=== PATIENT | female | born 1980 | race Native Hawaiian/Other Pacific Islander ===

== ENCOUNTER 2025-03-14 09:21 | Emergency (ER) | payer OTHER ==
[~2025-03-14] VITALS: Ht 162.6 cm; Wt 93.2 kg
[~2025-03-14 09:21] MED LIST: CARAFATE1 GM/10 ML PO; CRUTCH1 EACH; NAPROSYN500 MG PO; SPIRONOLACTONE100 MG PO
[2025-03-14] MEDS ORDERED: SODIUM CHLORIDE 0.9% 1,000 ML IV ONE (10:00)
[2025-03-14] MEDS ORDERED: MORPHINE SULFATE 4 MG/ML VIAL IV ONE (10:00)
[2025-03-14 10:28] LABS: BASOPHILS 0.3 % (0.1-1.2); EOSINOPHILS 0.6 % (0.7-5.8); LYMPHOCYTES 12.9 % (19.3-51.7); MCH 30.1 PG (25.6-32.2); MCHC 33.8 g/dL (32.2-35.5); MCV 89.2 fL (79.4-94.8); MONOCYTES 8.1 % (4.7-12.5); NEUTROPHILS 77.7 % (34.0-71.1); RBC 4.35 M/uL (3.93-5.22)
[2025-03-14 10:43] LABS: CORONAVIRUS COVID-19 AG NEGATIVE (NEGATIVE)
[2025-03-14 10:51] LABS: ALT (SGPT) 18.0 U/L (14-59); AST (SGOT) 6.0 U/L (15-37); GLOMERULAR FILTRATION RATE,EST 109.0 mL/min (>60); PROTEIN, TOTAL 7.5 g/dL (6.4-8.2); UREA NITROGEN 6.0 mg/dL (7-18)
[2025-03-14] MEDS ORDERED: CIPRO500 MG PO (11:42)
[2025-03-14] MEDS ORDERED: METRONIDAZOLE500 MG PO (11:42)
[2025-03-14] MEDS ORDERED: CIPROFLOXACIN 500 MG TAB PO ONE (11:45)
[2025-03-14] MEDS ORDERED: ONDANSETRON ODT4 MG PO (11:45)
[2025-03-14 11:50] LABS: BLOOD/HGB, URINE TRACE-I (Negative); KETONE, URINE TRACE (Negative); LEUK ESTERASE, URINE NEGATIVE (negative); NITRITE, URINE NEGATIVE (negative)
[2025-03-14 11:56] LABS: BACTERIA, URINE NONE SEEN /hpf (negative); CASTS, URINE NONE SEEN \\lpf; CRYSTALS, URINE NONE SEEN (0-1+); EPITHELIAL CELLS, URINE SQUAMOUS 2+ /lpf (0-1+); REFLEX CULTURE, URINE No (No)
[2025-03-14 12:08] VITALS: BP 108/78
== END 2025-03-14 12:10 | disposition home or self-care (01) ==
LOC: ED 09:21
PROVIDERS: Emergency Medicine
DX: K57.32 Diverticulitis of large intestine without perforation or abscess without bleeding (principal); Z88.5 Allergy status to narcotic agent
CPT/HCPCS: 36415; 74177; 80053; 81001; 83690; 84703; 85025; 96374; 96375; 99284-25; J2270; J2405; J7030; Q9967